=== PATIENT | male | born 1990 | race Caucasian/White ===

== ENCOUNTER 2020-02-18 17:40 | Emergency (ER) | payer SELFPAY ==
[2020-02-18 17:48] VITALS: BP 158/76; PULSE 89; RESP 20; TEMP 36.6; O2SAT 100
--- NOTE | 2020-02-18 18:17 | ED.GENADULT ---
HPI - General Adult General Chief complaint: Dental/Oral Stated complaint: tooth ache/headache Time Seen by Provider: 02/18/20 18:17 Source: patient and RN notes reviewed Mode of arrival: ambulatory Limitations: no limitations History of Present Illness HPI narrative: 29-year-old [facility] complaints of left most upper molar discomfort and headache on and Monday and called off of work. Patient states that he went to work lst night and they told him he had to get a return to work note to return. Patient states that he has been taking Ibuprofen and hs discomfort is tolerable and wants to return to work. Patient has made a dental appointment, he denies any fevers chills or sweats, has no cough or ay shortness of breath, no travel. He does have some redness and swelling around gum of last left upper molar with dental caries present. MD complaint: dental caries and tooth ache Onset (ago): day(s) (5) Location: mouth Radiation: non-radiation Severity: mild Quality: aching Pain Consistency: intermittent Relieving factors: medication Exacerbating factors: eating Associated symptoms: headaches Treatments prior to arrival: NSAID Related Data Allergies Allergy/AdvReac Type Severity Reaction Status Date / Time No Known Allergies Allergy Unverified 02/11/14 12:28 Review of Systems Review of Systems: Narrative: CONSTITUTIONAL: Denies fever, chills, or sweats. EYES: Denies visual changes, redness, or discharge. ENT: Denies rhinorrhea, congestion, sore throat, or otalgia. dental pain left upper last molar which has improved and patient states is tolerable at present. CARDIOVASCULAR: Denies chest pain, palpitations, or edema. RESPIRATORY: Denies cough or dyspnea. GASTROINTESTINAL: Denies abdominal pain, nausea, vomiting, or diarrhea. GENITOURINARY: Denies dysuria or hematuria. SKIN: Denies rash or itching. MUSCULOSKELETAL: Denies back pain, joint pain, or myalgia. NEUROLOGIC: positive headache which has now resolved, no numbness, or weakness. PSYCHIATRIC: Denies anxiety or depression. All systems reviewed & are unremarkable except as noted in HPI and below PMFSH Past Medical History Medical History (Updated 02/22/20 @ 15:33 by Shauna Pereira NP) No significant medical problems Social History Social History (Updated 02/18/20 @ 18:18 by Shauna Pereira NP) Smoking status: Never smoker Living arrangements: with family Gender identity (if verbalized by the patient): Male Comments At time of signature, agree with nursing past medical, social history. There is no relevant family history pertinent to the presenting complaint Exam Narrative: Exam Narrative: GENERAL: Well-appearing, well-nourished, and in no acute distress. HEAD: Normocephalic, atraumatic. EYES: PERRLA and EOMI. ENT: Nares clear, no rhinorrhea or epistaxis. Mucous membranes moist.TM's normal with good light reflex, throat pink no tonsil swelling or lesions, no Paco angina, swelling and redness of gum around left upper last molar with dental caries noted. NECK: Supple.no lymphadenopathy CHEST: Clear to auscultation. No respiratory distress.SAO2 100% on room air. HEART: Regular rate and rhythm. No murmur heard. Normal peripheral pulses. ABDOMEN: Soft, nontender, nondistended, normal active bowel sounds. EXTREMITIES: Normal range of motion. No edema. SKIN: Warm, dry, no rash. NEURO: No focal deficits. Alert and oriented x3. Course Vital Signs Vital signs: Vital Signs Temperature 36.6 C 02/18/20 17:48 Pulse Rate 89 02/18/20 17:48 Respiratory Rate 02/18/20 17:48 Blood Pressure 158/76 H 02/18/20 17:48 Pulse Oximetry 100 02/18/20 17:48 Temperature 36.6 C 02/18/20 17:48 Pulse Rate 89 02/18/20 17:48 Respiratory Rate 02/18/20 17:48 Blood Pressure 158/76 H 02/18/20 17:48 Pulse Oximetry 100 02/18/20 17:48 Medical Decision Making Differential Diagnosis Differential Diagnosis: toothache, d
== END 2020-02-18 18:39 | disposition home or self-care (01) ==
PROVIDERS: Emergency Provider Registered Nurse
DX: K02.9 Dental caries, unspecified (principal)
CPT/HCPCS: 99203; G0463

== ENCOUNTER 2025-02-05 14:59 | Emergency (ER) | payer BC, SELFPAY ==
[2025-02-05 15:06] VITALS: BP 150/89; PULSE 118; RESP 24; TEMP 37.9; O2SAT 97
[2025-02-05 15:30] LABS: EDCOVIDSCREEN Negative (Negative); EDINFLUASCREEN Negative (Negative); EDINFLUBSCREEN Negative (Negative)
--- NOTE | 2025-02-05 16:12 | ED_ITS ---
HPI - URI/Sore Throat General Chief Complaint: Upper Respiratory Infection Stated Complaint: Fever/Cough/Vomiting Source: patient and RN notes reviewed Mode of arrival: ambulatory Limitations: no limitations History of Present Illness HPI Narrative: 34-year-old male presented for complaint of nausea vomiting, cough, headache. Onset yesterday morning. Says chest and right upper back are sore from coughing. Took Tylenol. denies abdominal pain, sob, wheezing, or lethargy. MD elicited complaint: cough Related Data Allergies Allergy/AdvReac Type Severity Reaction Status Date / Time No Known Allergies Allergy Verified 02/05/25 15:13 Review of Systems Review of Systems: per HPI [facility] Past Medical History Medical History (Updated 02/05/25 @ 16:38 by Miranda Baeza APRN) No significant medical problems Social History Social History (Updated 02/18/20 @ 18:18 by Shauna Pereira NP) Smoking status: Never smoker Living arrangements: with family Gender identity (if verbalized by the patient): Male Exam Narrative: GENERAL: Mildly Ill-appearing, nontoxic no acute distress. EYES: conjunctivae clear ENT: Mucous membranes moist. TM pearly artis with dull light reflex bilaterally; no tragal tenderness. Oropharynx erythematous without lesions or exudate, no drooling, no hoarseness, no trismus, uvula midline. No tripod positioning, muffled voice, soft palate or pharyngeal wall bulging NECK: Supple. No lymphadenopathy CHEST: Clear to auscultation, breath sounds equal. No wheezing, rhonchi, rales, or stridor. No respiratory distress, speaks in full sentences. HEART: Regular rate and rhythm. No murmur heard. ABD: soft, large, nontender; body habitus limits exam. bowel sounds hyperactive. SKIN: Warm, dry, no rash. NEURO: Alert and oriented x3. Course Course Emergency Course: Patient is aware of diagnosis, understands and agrees to treatment plan. Anticipatory guidance given. Patient agrees to follow-up as directed and is aware of reasons to seek care at the emergency department. Portions of this record may have been created with voice recognition software Level of Care: Express Care Visit Vital Signs Vital signs: Vital Signs Temperature 100.3 F H 02/05/25 15:06 Pulse Rate 118 H 02/05/25 15:06 Respiratory Rate 24 H 02/05/25 15:06 Blood Pressure 150/89 H 02/05/25 15:06 Pulse Oximetry 97 02/05/25 15:06 Oxygen Delivery Room Air 02/05/25 15:06 Temperature 100.3 F H 02/05/25 15:06 Pulse Rate 118 H 02/05/25 15:06 Respiratory Rate 24 H 02/05/25 15:06 Blood Pressure 150/89 H 02/05/25 15:06 Pulse Oximetry 97 02/05/25 15:06 Oxygen Delivery Room Air 02/05/25 15:06 reviewed MDM - URI/Sore Throat MDM Narrative Medical decision making narrative: Discussed physical exam findings. negative flu and COVID. Advised supportive measures and signs/symptoms to go to the ER. Pt is appropriate for outpt treatment and f/u. Differential Diagnosis Differential diagnosis: Likely upper respiratory infection, sinusitis and viral infection Lab Data Labs: Lab Results 02/05/25 Range/Units 15:29 POC Influenza A Ag Negative (Negative) POC Influenza B Ag Negative (Negative) POC SARS CoV-2 Ag Negative (Negative) Discharge Plan Discharge Clinical Impression: Viral infection Patient Disposition: Home, Self-Care Condition: Stable Instructions: Antibiotic Form, Viral Syndrome (ED) Additional Instructions: Influenza negative You should avoid crowds until you are fever free for 24 hours without the use of fever reducing medications, or the symptoms are improved Rest. Drink plenty of fluids. Tylenol 1000mg every 8 hours as needed for pain/fever Flonase spray and Zyrtec (or Claritin/Tiffanie) for sinus pressure/congestion over the counter Cough syrup may cause drowsiness; avoid driving or take it at night time. Follow up with your primary care provider as needed Go to the ER for worsening symptoms or concerns Patient Language: Fijian Prescriptions: New ibuprofen 800 mg tablet 800 mg PO TID PRN (Reason: pain) Qty: 15 0RF Follow-up/Referrals: PHYSICIAN,PRODUCTION STAGE MANAGER [Primary Care Provider] - Stand Alone Forms: Work/School Release IP Time of Disposition: 16:40
[2025-02-05 16:45] VITALS: TEMP 37.9
[2025-02-05] MEDS: ACETAMINOPHEN 500 MG TABLET 1000 MG PO (16:45)
--- OUTSIDE RECORDS SUMMARY | 2025-02-05 17:00 | XMS_ITS | Continuity of Care Document ---
Author Organization [facility] Address [address] [place] [address] [place] [phone] Phone Care Team Providers Care Paid Search Specialist Name Role Phone Frank MS, OTR/L, CHTLa Unavailable Unavailable Procedures Procedure Date Progress Note THERAPEUTIC EXERCISES NEUROMUSCULAR RE-ED MANUAL THERAPY FUNC ACTIVITY HOT/COLD PACK THERAPEUTIC EXERCISES NEUROMUSCULAR RE-ED MANUAL THERAPY FUNC ACTIVITY ORTHOTIC FITTING /COLD PACK Static forearm splint THERAPEUTIC EXERCISES NEUROMUSCULAR RE-ED MANUAL THERAPY FUNC ACTIVITY HOT/COLD PACK THERAPEUTIC EXERCISES NEUROMUSCULAR RE-ED MANUAL THERAPY FUNC ACTIVITY HOT/COLD PACK THERAPEUTIC EXERCISES NEUROMUSCULAR RE-ED MANUAL THERAPY FUNC ACTIVITY HOT/COLD PACK Progress Note THERAPEUTIC EXERCISES NEUROMUSCULAR RE-ED MANUAL THERAPY FUNC ACTIVITY HOT/COLD PACK THERAPEUTIC EXERCISES NEUROMUSCULAR RE-ED MANUAL THERAPY FUNC ACTIVITY ULTRASOUND THERAPY HOT/COLD PACK THERAPEUTIC EXERCISES NEUROMUSCULAR RE-ED MANUAL THERAPY FUNC ACTIVITY ULTRASOUND THERAPY HOT/COLD PACK THERAPEUTIC EXERCISES NEUROMUSCULAR RE-ED MANUAL THERAPY FUNC ACTIVITY ULTRASOUND THERAPY HOT/COLD PACK THERAPEUTIC EXERCISES NEUROMUSCULAR RE-ED MANUAL THERAPY FUNC ACTIVITY ULTRASOUND THERAPY HOT/COLD PACK THERAPEUTIC EXERCISES NEUROMUSCULAR RE-ED MANUAL THERAPY FUNC ACTIVITY HOT/COLD PACK OT EVALUATION THERAPEUTIC EXERCISES MANUAL THERAPY HOT/COLD PACK Advance Directives Directive Yes / No Effective Date File Name No Information Encounters Encounter Description Practice Location Reason(s) For Visit Diagnoses Date Provider Providers Copied on Encounter [facility], [id number], tel:[phone] [place] No Information 6 Frank Tovar. [address] [facility], [address], [place], [facility], [place]. tel:[phone] [facility] [address] [employer] [address], [place], [id number], tel:[phone] [place] No Information 6 Frank Tovar. [address] [facility], [address], [place], [place], [facility], [place]. tel:[phone] [facility] [address] [employer] [address], [place], [place], [id number], tel:[phone] [place] No Information 6 Frank Tovar. [address] [facility], [address], [place], [place], [facility], [place]. tel:[phone] [facility] [address], [place], [place], [id number], [place] tel:[phone] [place] No Information 0 8- 6 Calderon Eliezer. , [place], [place]. [facility], [address], [place], [place], [id number], tel:[phone] [place] No Information May-0 6-201 6 Zain Saenz. [address] [place] [address], [address], [place], [place], [facility], [place]. tel:[phone] [facility], [address], [place], [place], [id number], [place] tel:[phone] [place] Muscle weakness (generalized) May-0 5 6 [place] La. [address] [place] [address], [address], [place], [place], [facility], . tel:[phone] [facility] [address] [facility], [place], [place], [id number], tel:[phone] [place] No Information 0 6 [place] [place]. [address] [place] [address], [address], [place], [place], [facility], [place]. tel:[phone] [facility] [facility], [place], [place], [id number], [place] tel:[phone] [place] No Information 6 [place]. [address] [place] [address], [address], [place], [place], [facility], [place]. tel:[phone] [facility], [place], [place], [id number], [place] tel:[phone] [place] No Information 8- 6 Calderon Eliezer. , [place], [place]. [facility], [place], [place], [address], [place] tel:[phone] [place] No Information 2 4-201 6 [place]. [address] [place] [address], [address], [place], [place], [facility], . tel:[phone] [facility], [address], [place], [place], [address], tel:[phone] [place] No Information 2 6 Frank Tovar. [address] [facility], [address], [place], [place], [facility], . tel:[phone] [facility], [address], [place], [place], [id number], tel:[phone] [place] Stiffness of right hand, not elsewhere classifiedPain in right finger(s)Stiffn ess of right wrist, not elsewhere classifiedEnthe sopathy, unspecifiedLace rat unsp musc/fasc/tend at wrs/hnd lv, right hand, subs 0 6 Frank Tovar. [address] [facility], [address], [place], [address], . tel:[phone] Family History Family Member Type Diagnosis Age At Onset No Information Payers Payer name Insurance type Covered republican ID Authoriza tion(s) No Information Social History Type Description Quantity Date Captured Comments Sex Male Smoking Status No Information Chief Complaint And Reason For Visit No Information Reason For Referral Reason For Referral No Information History Of Present Illness Encounter Date Complaint History Of Prese nt Illness No Information Functional Status Date Functional Assessmen t No Information Instructions Date Instruction Additional Infor mation No Information Assessments Type Assessment Date No Information Patient Care Teams Name Effective Dates (start - stop) Status Members No Information
--- OUTSIDE RECORDS SUMMARY | 2025-02-05 17:05 | XMS_ITS | Continuity of Care Document ---
Author Organization [facility] Address [address] [place] [address] [place] [phone] Phone Care Team Providers Care Maritime Officer Name Role Phone Frank MS, OTR/L, CHTLa [...] Diagnoses Date Provider Providers Copied on Encounter [facility] [employer], [id number], tel:[phone] [place] No Information 6 Frank Tovar. [address] [facility], [address], [place], [facility], [place]. tel:[phone] [facility] [address] [employer] [address], [place], [address], tel:[phone] [place] No Information 6 Frank Tovar. [address] [facility], [address], [place], [place], [facility], [place]. tel:[phone] [facility] [address], [place], [place], [id number], tel:[phone] [place] No Information 6 Frank Tovar. [address] [facility], [address], [place], [place], [facility], [place]. tel:[phone] [facility] [address], [place], [place], [address], [place] tel:[phone] [place] No Information 0 8- 6 Calderon Eliezer. , [place], [place]. [facility], [address], [place], [place], [id number], tel:[phone] [place] No Information May-0 6-201 6 Zani Saenz. [address] [place] [address], [address], [place], [place], [facility], [place]. tel:[phone] [facility], [address], [place], [place], [address], [place] tel:[phone] [place] Muscle weakness (generalized) May-0 5 6 [place] La. [address] [place] [address], [address], [place], [place], [facility], . tel:[phone] [facility] [address] [facility], [place], [place], [address], tel:[phone] [place] No Information 0 6 [place] La. [address] [place] [address], [address], [place], [place], [facility], [place]. tel:[phone] [facility] [facility] [address], [place], [place], [address], [place] tel:[phone] [place] No Information 6 [place] La. [address] [place] [address], [address], [place], [place], [facility], [place]. tel:[phone] [facility], [place], [place], [address], [place] tel:[phone] [place] No Information 8- 6 Calderon Eliezer. , [place], [place]. [facility], [place], [place], [address], [place] tel:[phone] [place] No Information 2 4-201 6 [place] La. [address] [place] [address], [address], [place], [place], [facility], . tel:[phone] [facility], [address] [facility] [address], [place], [place], [address], tel:[phone] [place] No Information 2 6 Frank Tovar. [address] [facility], [address], [place], [facility], . tel:[phone] [facility], [address] [facility] [address], [place], [place], [id number], tel:[phone] [place] Stiffness of right hand, not elsewhere classifiedPain in right finger(s)Stiffn ess of right wrist, not elsewhere classifiedEnthe sopathy, unspecifiedLace rat unsp musc/fasc/tend at wrs/hnd lv, right hand, subs 0 6 Frank Tovar. [address] [facility], [address], [place], [address], . tel:[phone] Family History Family Member Type Diagnosis Age At Onset No Information Payers Payer name Insurance type Covered constitution party ID Authoriza tion(s) No Information Social History [...]
== END 2025-02-05 16:47 | disposition home or self-care (01) ==
PROVIDERS: Emergency Provider Nurse Practitioner Family
DX: B34.9 Viral infection, unspecified (principal); Z20.822 Contact with and (suspected) exposure to COVID-19
CPT/HCPCS: 87426; 87804; 99213; A9270; G0463